=== PATIENT | male | born 1980 | race Caucasian/White ===

== ENCOUNTER → 2016-04-22 | Outpatient (CLI) | payer BC ==
--- NOTE | 2016-04-22 13:18 | DIAGNOSTIC IMAGING REPORT ---
LEFT SECOND TOE 3 VIEWS CLINICAL HISTORY: Left second toe pain status post trauma COMPARISON: None. DISCUSSION: 3 views reveal no fractures or dislocations. IMPRESSION: No fractures or dislocations identified. Electronically signed by: Raf Lynn M.D. 04/22/2016 1:16 PM Dictated Date/Time: 04/22/2016 1:15 PM
== END | disposition home or self-care (01) ==
LOC: C.RAD1850 12:48
PROVIDERS: ATTEND Family Medicine
DX: S99.922A Unspecified injury of left foot, initial encounter (principal); X58.XXXA Exposure to other specified factors, initial encounter

== ENCOUNTER → 2016-07-30 | Outpatient (CLI) | payer BC ==
--- NOTE | 2016-07-30 10:46 | DIAGNOSTIC IMAGING REPORT ---
AP STANDING VIEW OF BOTH KNEES; 2 VIEWS LEFT KNEE CLINICAL HISTORY: Left anterior knee pain. FINDINGS: An AP standing view both knees with lateral and sunrise views of the left knee are obtained. No prior studies are available for comparison at the time of dictation. The skeletal structures are well mineralized. No fracture is seen. The joint spaces of the knee are well-maintained. A small joint effusion is noted. The overlying soft tissues are within normal limits. Survey images of the right knee on the frontal view show no abnormality. IMPRESSION: Small joint effusion with no acute bony abnormality seen in the left knee. Electronically signed by: Ezekiel Lehman M.D. 07/30/2016 10:44 AM Dictated Date/Time: 07/30/2016 10:43 AM
== END | disposition home or self-care (01) ==
LOC: C.RDSM 13:41
PROVIDERS: ATTEND Family Medicine
DX: M25.562 Pain in left knee (principal)